=== PATIENT | female | born 1990 | race African-American/Black ===

== ENCOUNTER 2019-02-03 20:01 | Emergency (ER) | payer OTHER ==
[~2019-02-03] VITALS: Ht 170.2 cm; Wt 62.6 kg
[2019-02-03 21:13] LABS: ABSOLUTE NEUTROPHILS 10.1 thou/uL (1.4-8.2); BASOPHILS 0.3 % (0.0-2.0); EOSINOPHILS 0.2 % (0.0-3.0); HEMATOCRIT 38.9 % (37.0-47.0); HEMOGLOBIN 13.2 gm/dL (12.0-15.0); LYMPHOCYTES 16.3 % (24.0-44.0); MCH 30.1 pg (26.0-34.0); MCHC 33.8 g/dL (28.0-37.0); MCV 88.9 fL (80.0-100.0); PLATELET COUNT 385 thou/uL (150-400); POLYS 76.2 % (36.0-66.0); RBC 4.38 mil/uL (4.20-5.00); RDW 13.6 % (10.5-14.5); WBC 13.3 thou/uL (4.0-11.0)
[2019-02-03 21:15] LABS: URINE BILIRUBIN NEGATIVE (Negative); URINE BLOOD 3+ (Negative); URINE CLARITY SL CLOUDY; URINE COLOR YELLOW; URINE GLUCOSE-RANDOM* NEGATIVE (Negative); URINE KETONES TRACE (Negative); URINE NITRITE-REFLEX NEGATIVE (Negative); URINE PROTEIN (DIPSTICK) TRACE (Negative)
[2019-02-03 21:16] LABS: ANION GAP 8 mmol/L (7-16); BUN 8 mg/dL (7-18); CALCIUM 9.2 mg/dL (8.5-10.1); CHLORIDE 97 mmol/L (98-107); CO2 29 mmol/L (21-32); GLUCOSE 115 mg/dL (74-106); SODIUM 134 mmol/L (136-145)
[2019-02-03 21:17] LABS: URINE LEUKOCYTES-REFLEX 3+ (Negative)
[2019-02-03 21:22] LABS: ALBUMIN 3.9 g/dL (3.4-5.0); DIRECT BILIRUBIN < 0.1 mg/dL (<0.1-0.3); LIPASE 81 U/L (73-393); SGOT 14 U/L (15-37); SGPT 16 U/L (30-65); TOTAL BILIRUBIN 0.4 mg/dL (<0.1-1.0); TOTAL PROTEIN 7.8 g/dL (6.4-8.2)
[2019-02-03 21:25] LABS: SQUAMOUS >10 Many /LPF (0-3)
[2019-02-03 21:26] LABS: CASTS None Seen /LPF (None Seen); CRYSTALS None Seen /LPF (None Seen); MUCUS 4-6 Moderate strn/LPF (None Seen); URINE WBC-REFLEX >25 Many /HPF (0-5)
[2019-02-03 21:27] LABS: BACTERIA-REFLEX 1-9 Few /HPF (None Seen); RENAL EPITHELIAL CELLS 4-10 Moderate /LPF (None Seen)
[2019-02-03] MEDS ORDERED: ZOFRAN ODT4 MG DISSOLVE (21:31)
[2019-02-03] MEDS ORDERED: CARAFATE 1 GM TA1 G1 PO (21:31)
[2019-02-03] MEDS ORDERED: LIDOCAINE40 MG/1 ML PO (22:47)
[2019-02-03] MEDS ORDERED: CARAFATE1 GM PO (22:47)
[2019-02-03] MEDS ORDERED: DIPHENHYDR12.5 MG/5 PO (22:47)
[2019-02-03] MEDS ORDERED: ZOFRAN ODT4 MG PO (22:47)
[2019-02-03] MEDS ORDERED: KEFLEX500 M1 PO (22:47)
[2019-02-03 23:08] VITALS: BP 98/44
== END 2019-02-03 23:08 | disposition home or self-care (01) ==
LOC: ER 20:01
PROVIDERS: Emergency Medicine
DX: K21.9 Gastro-esophageal reflux disease without esophagitis (principal); N39.0 Urinary tract infection, site not specified; J45.909 Unspecified asthma, uncomplicated; Z90.49 Acquired absence of other specified parts of digestive tract